=== PATIENT | female | born 1970 | race Caucasian/White ===

== ENCOUNTER 2018-08-05 17:02 | Emergency (ER) | payer OTHER ==
[~2018-08-05] VITALS: Ht 160 cm; Wt 65.8 kg
--- OUTSIDE RECORDS SUMMARY | 2018-08-05 17:07 | XMS REPORT ---
Author Author ZENAIDA MORRELL Organization [facility] Address [address] [place] [address] Care Team Providers Care Navigation Teacher Name Role Phone ZENAIDA MORRELL Unavailable PROBLEMS Type Condition ICD9-CM Code [id number] Code Onset Dates Condition Status SNOMED Code Problem Essential hypertension I10 Active 36128435 Problem PMDD (premenstrual dysphoric disorder) N94.3 Active 80389911 ALLERGIES Substance Reaction Event Type Date Status Azithromycin Unknown Drug Allergy Jun, Active ENCOUNTERS Encounter Location Date Diagnosis [facility] [address] [facility] [id number] [address] Jun, Essential hypertension I10 ; PMDD (premenstrual dysphoric disorder) N94.3 and Middle ear effusion, bilateral H65.93 IMMUNIZATIONS No Known Immunizations SOCIAL HISTORY Never Assessed REASON FOR VISIT headaches/pressure in ears (right ear is worse than the left ear) Luba Baca MA PLAN OF CARE Activity Details Follow Up 4 Weeks,prn Reason:HTN VITAL SIGNS Weight 161.9 lbs 2018-06-25 Temperature 97.4 degrees Fahrenheit 2018-06-25 Heart Rate 86 bpm 2018-06-25 Respiratory Rate 20 2018-06-25 Blood pressure systolic 148 mmHg 2018-06-25 Blood pressure diastolic 86 mmHg 2018-06-25 MEDICATIONS Medication Instructions Dosage Frequency Start Date End Date Duration Status Lisinopril 10 MG Orally Once a day 1 tablet 24h Jun, 30 day(s) Active Fluticasone Propionate 50 MCG/ACT Nasally Once a day 1 spray in each nostril 24h Jun, 30 day(s) Active RESULTS No Results PROCEDURES No Known procedures INSTRUCTIONS MEDICATIONS ADMINISTERED No Known Medications MEDICAL (GENERAL) HISTORY Type Description Date Surgical History Appendix Surgical History Left ankle surgery Surgical History wisdom teeth Hospitalization History surgeries
[2018-08-05] MEDS ORDERED: ORPHENADRINE 60 MG/2 ML (NORFLEX) AMP IV STA (17:08)
[2018-08-05] MEDS ORDERED: KETOROLAC 30 MG/ML VIAL IVP STA (17:08)
[2018-08-05] MEDS ORDERED: BP MED (17:25)
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
--- NOTE | 2018-08-05 17:55 | NUR ---
DENIES NEEDS AT THIS TIME. NOTIFIED WE WERE WAITING ON RSULTS OF SCAN.
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
[2018-08-05] MEDS ORDERED: LEVOFLOXACIN 500 MG TAB (LEVAQUIN) PO STA (18:55)
[2018-08-05] MEDS ORDERED: LEVO500T80 PO (18:58)
[2018-08-05] MEDS ORDERED: ACHD5005 PO (18:58)
[2018-08-05] MEDS ORDERED: CYCL10TA9 PO (18:58)
--- NOTE | 2018-08-05 18:59 | NUR ---
REPORT GIVEN TO CHRISTIN CARVALHO.
[2018-08-05] MEDS ORDERED: RX-HYDROCODONE/APAP 5/325 MG #4 TAB PK PO PRN (19:00)
[2018-08-06 03:09] VITALS: BP 172/102
== END 2018-08-05 19:17 | disposition home or self-care (01) ==
LOC: ER 17:04
DX: S16.1XXA Strain of muscle, fascia and tendon at neck level, initial encounter (principal); S39.012A Strain of muscle, fascia and tendon of lower back, initial encounter; J01.00 Acute maxillary sinusitis, unspecified; I10 Essential (primary) hypertension; G43.909 Migraine, unspecified, not intractable, without status migrainosus; Z88.0 Allergy status to penicillin; Z90.49 Acquired absence of other specified parts of digestive tract; V69.40XA Driver of heavy transport vehicle injured in collision with unspecified motor vehicles in traffic accident, initial encounter
CPT/HCPCS: 70450; 72125; 72131

== ENCOUNTER → 2021-03-06 | Outpatient (CLI) | payer OTHER ==
[~2021-03-06] MED LIST: ACHD5005 PO; BP MED; CASIRIVIMAB/IMDEVIMAB 1,200 MG in NS (IVPB) 250 ML IV ONE; CYCL10TA9 PO; EPINEPHrine INJECTION 1 MG/ML AMP IM PRN; LEVO500T80 PO; diphenhydrAMINE 50 MG/ML INJ (BENADRYL) IV PRN
[2021-03-06 12:05] VITALS: BP 113/71
[2021-03-06 12:11] VITALS: BP 113/71
[2021-03-06 12:59] VITALS: BP 115/62
== END ==
LOC: INFUSION 11:53
PROVIDERS: ATTEND Nurse Practitioner Family
DX: Z23 Encounter for immunization (principal); U07.1 COVID-19